=== PATIENT | female | born 1985 | race Caucasian/White ===

== ENCOUNTER 2019-01-09 12:51 | Emergency (ER) | payer BC, OTHER ==
[~2019-01-09] VITALS: Ht 160 cm; Wt 77.1 kg
[2019-01-09 13:11] VITALS: Ht 160 cm; Wt 77.1 kg
[2019-01-09 14:40] LABS: BASOPHIL % 0.6 % (0-2); PLATELET COUNT 305 x10^3mcL (130-400); RED CELL DISTRIBUTION WIDTH 14.1 % (11.5-14.5)
[2019-01-09 14:45] LABS: CALCIUM 8.7 mg/dL (8.5-10.1); CARBON DIOXIDE 23.6 mmol/L (21-32); CHLORIDE SERUM 103 mmol/L (98-107); CREATININE SERUM 0.6 mg/dL (0.6-1.0); GFR1 > 60 mL/min; GLUCOSE SERUM 81 mg/dL (74-106); POTASSIUM SERUM 3.5 mmol/L (3.5-5.1); SODIUM SERUM 141 mmol/L (136-145)
[2019-01-09 14:49] LABS: ALBUMIN 3.7 g/dL (3.4-5.0); ALKALINE PHOSPHATASE 58 U/L (46-116); ALT/SGPT 25 U/L (14-59); AST/SGOT 23 U/L (15-37); BILIRUBIN TOTAL 0.2 mg/dL (0.20-1.00); LIPASE 104 IU/L (73-393); TOTAL PROTEIN, SERUM 7.5 g/dL (6.4-8.2)
[2019-01-09 20:53] VITALS: BP 104/77
== END 2019-01-09 20:53 | disposition home or self-care (01) ==
LOC: ED 12:51
PROVIDERS: Emergency Medicine
DX: N39.0 Urinary tract infection, site not specified (principal); R11.0 Nausea; Z87.442 Personal history of urinary calculi
CPT/HCPCS: J1885; J2270; J2405; J7030

== ENCOUNTER 2019-01-29 11:50 | Emergency (ER) | payer BC, OTHER ==
[~2019-01-29] VITALS: Ht 160 cm; Wt 79.0 kg
[2019-01-29 13:06] LABS: BASOPHIL % 0.7 % (0-2); PLATELET COUNT 289 x10^3mcL (130-400); RED CELL DISTRIBUTION WIDTH 13.8 % (11.5-14.5)
[2019-01-29 13:13] LABS: CALCIUM 8.4 mg/dL (8.5-10.1); CARBON DIOXIDE 30.6 mmol/L (21-32); CHLORIDE SERUM 100 mmol/L (98-107); CREATININE SERUM 0.7 mg/dL (0.6-1.0); GFR1 > 60 mL/min; GLUCOSE SERUM 84 mg/dL (74-106); POTASSIUM SERUM 3.3 mmol/L (3.5-5.1); SODIUM SERUM 139 mmol/L (136-145)
[2019-01-29 13:20] LABS: ALBUMIN 3.9 g/dL (3.4-5.0); ALKALINE PHOSPHATASE 73 U/L (46-116); ALT/SGPT 39 U/L (14-59); AST/SGOT 25 U/L (15-37); BILIRUBIN TOTAL 0.4 mg/dL (0.20-1.00); TOTAL PROTEIN, SERUM 8.1 g/dL (6.4-8.2)
[2019-01-29 18:18] VITALS: BP 125/84
== END 2019-01-29 18:19 | disposition home or self-care (01) ==
LOC: ED 11:50
PROVIDERS: Emergency Medicine
DX: R10.31 Right lower quadrant pain (principal)
CPT/HCPCS: 36415

== ENCOUNTER 2019-04-13 11:37 | Emergency (ER) | payer BC, OTHER ==
[~2019-04-13] VITALS: Ht 162.6 cm; Wt 77.1 kg
[2019-04-13 12:12] VITALS: Ht 162.6 cm; Wt 77.1 kg
[2019-04-13 12:32] LABS: BASOPHIL % 0.5 % (0-2); PLATELET COUNT 330 x10^3mcL (130-400); RED CELL DISTRIBUTION WIDTH 13.4 % (11.5-14.5)
[2019-04-13 12:55] LABS: CALCIUM 9.1 mg/dL (8.5-10.1); CARBON DIOXIDE 27.5 mmol/L (21-32); CHLORIDE SERUM 106 mmol/L (98-107); CREATININE SERUM 0.6 mg/dL (0.6-1.0); GFR1 > 60 mL/min; GLUCOSE SERUM 96 mg/dL (74-106); POTASSIUM SERUM 3.8 mmol/L (3.5-5.1); SODIUM SERUM 142 mmol/L (136-145)
[2019-04-13 13:00] LABS: ALBUMIN 3.7 g/dL (3.4-5.0); ALKALINE PHOSPHATASE 61 U/L (46-116); ALT/SGPT 29 U/L (14-59); AST/SGOT 12 U/L (15-37); BILIRUBIN TOTAL 0.31 mg/dL (0.20-1.00); TOTAL PROTEIN, SERUM 7.5 g/dL (6.4-8.2)
[2019-04-13 15:08] VITALS: BP 121/81
== END 2019-04-13 15:12 | disposition home or self-care (01) ==
LOC: ED 11:37
DX: R10.32 Left lower quadrant pain (principal)
CPT/HCPCS: 36415; 87491; 87591; J1885

== ENCOUNTER 2019-04-20 13:33 | Emergency (ER) | payer BC, OTHER ==
[~2019-04-20] VITALS: Ht 162.6 cm; Wt 77.1 kg
[2019-04-20 13:45] VITALS: Ht 162.6 cm; Wt 77.1 kg
[2019-04-20 15:47] VITALS: BP 125/77
== END 2019-04-20 15:47 | disposition home or self-care (01) ==
LOC: ED 13:33
DX: A56.01 Chlamydial cystitis and urethritis (principal)
CPT/HCPCS: J0696

== ENCOUNTER 2019-07-19 20:27 | Emergency (ER) | payer BC, OTHER ==
[~2019-07-19] VITALS: Ht 160 cm; Wt 76.2 kg
[2019-07-19 20:31] VITALS: BP 136/93; Ht 160 cm; Wt 76.2 kg
== END 2019-07-19 22:23 | disposition home or self-care (01) ==
LOC: ED 20:27
DX: L25.9 Unspecified contact dermatitis, unspecified cause (principal); L03.114 Cellulitis of left upper limb
CPT/HCPCS: J0696

== ENCOUNTER 2019-08-03 13:58 | Emergency (ER) | payer BC, OTHER ==
[~2019-08-03] VITALS: Ht 162.6 cm; Wt 76.7 kg
[2019-08-03 14:06] VITALS: Ht 162.6 cm; Wt 76.7 kg
[2019-08-03 14:39] VITALS: BP 114/81
== END 2019-08-03 14:39 | disposition home or self-care (01) ==
LOC: ED 13:58
DX: L03.211 Cellulitis of face (principal)

== ENCOUNTER 2019-11-17 08:55 | Emergency (ER) | payer BC, OTHER ==
[~2019-11-17] VITALS: Ht 162.6 cm; Wt 78.9 kg
[2019-11-17 09:06] VITALS: BP 136/88; Ht 162.6 cm; Wt 78.9 kg
== END 2019-11-17 10:47 | disposition home or self-care (01) ==
LOC: ED 08:55
DX: M54.5 Low back pain (principal)
CPT/HCPCS: J1885; J2001

== ENCOUNTER 2020-05-10 13:52 | Emergency (ER) | payer BC, OTHER ==
[~2020-05-10] VITALS: Ht 160 cm; Wt 83.0 kg
[2020-05-10 14:06] VITALS: Ht 160 cm; Wt 83.0 kg
[2020-05-10 17:35] LABS: BASOPHIL % 0.9 % (0-2); PLATELET COUNT 308 x10^3mcL (130-400); RED CELL DISTRIBUTION WIDTH 13.1 % (11.5-14.5)
[2020-05-10 18:10] LABS: CALCIUM 8.4 mg/dL (8.5-10.1); CARBON DIOXIDE 26.9 mmol/L (21-32); CHLORIDE SERUM 103 mmol/L (98-107); CREATININE SERUM 0.6 mg/dL (0.6-1.0); GFR1 > 60 mL/min; GLUCOSE SERUM 82 mg/dL (74-106); POTASSIUM SERUM 3.8 mmol/L (3.5-5.1); SODIUM SERUM 139 mmol/L (136-145)
[2020-05-10 18:14] LABS: ALBUMIN 3.8 g/dL (3.4-5.0); ALKALINE PHOSPHATASE 54 U/L (46-116); ALT/SGPT 86 U/L (14-59); AST/SGOT 44 U/L (15-37); BILIRUBIN TOTAL 0.4 mg/dL (0.20-1.00); TOTAL PROTEIN, SERUM 7.4 g/dL (6.4-8.2)
[2020-05-10 18:15] LABS: AMPHETAMINE QUAL UR NONE DETECTED (See below)
[2020-05-10 18:52] VITALS: BP 123/81
== END 2020-05-10 18:52 | disposition home or self-care (01) ==
LOC: ED 13:52
PROVIDERS: Emergency Medicine
DX: R07.89 Other chest pain (principal); R20.2 Paresthesia of skin
CPT/HCPCS: 36415; Q0092

== ENCOUNTER 2020-06-23 13:21 | Emergency (ER) | payer BC, OTHER ==
[~2020-06-23] VITALS: Ht 165.1 cm; Wt 80.3 kg
[2020-06-23 13:30] VITALS: Ht 165.1 cm; Wt 80.3 kg
[2020-06-23 16:05] LABS: BASOPHIL % 0.7 % (0-2); PLATELET COUNT 330 x10^3mcL (130-400); RED CELL DISTRIBUTION WIDTH 13.3 % (11.5-14.5)
[2020-06-23 16:25] LABS: CALCIUM 8.2 mg/dL (8.5-10.1); CHLORIDE SERUM 102 mmol/L (98-107); CREATININE SERUM 0.7 mg/dL (0.6-1.0); GFR1 > 60 mL/min; GLUCOSE SERUM 86 mg/dL (74-106); POTASSIUM SERUM 3.2 mmol/L (3.5-5.1); SODIUM SERUM 140 mmol/L (136-145)
[2020-06-23 16:27] LABS: ALBUMIN 3.9 g/dL (3.4-5.0); ALKALINE PHOSPHATASE 55 U/L (46-116); ALT/SGPT 70 U/L (14-59); AST/SGOT 40 U/L (15-37); BILIRUBIN TOTAL 0.4 mg/dL (0.20-1.00); LIPASE 107 IU/L (73-393); TOTAL PROTEIN, SERUM 7.6 g/dL (6.4-8.2)
[2020-06-23 19:25] VITALS: BP 102/68
== END 2020-06-23 19:25 | disposition home or self-care (01) ==
LOC: ED 13:21
PROVIDERS: Emergency Medicine
DX: R10.32 Left lower quadrant pain (principal); R11.2 Nausea with vomiting, unspecified
CPT/HCPCS: J2270; J2405; J7030